=== PATIENT | male | born 1955 | race Caucasian/White ===

== ENCOUNTER 2018-07-28 15:39 | Outpatient (CLI) | payer BC ==
--- NOTE | 2018-07-29 10:55 | Ultrasound Report ---
Reason: LUNG CA SCREEN,AAA SCREEN Procedure Date: 07/28/2018 Accession Number: [id number] / [id number] Procedure: US - Aorta Screening CPT Code: FULL RESULT: EXAM: AORTIC DOPPLER ULTRASOUND EXAM DATE: 07/28/2018 04:40 PM. CLINICAL HISTORY: Extensive smoking history. Age 62. COMPARISON: None. TECHNIQUE: Real-time sonographic imaging of retroperitoneal vascular structures, including color-flow, Doppler flow and spectral analysis was performed by the production technician. Multiple outside sales representative insurance static images were saved for review. FINDINGS: Aorta: The abdominal aorta was adequately visualized. No evidence for abdominal aortic aneurysm. Aorta proximal: Sagittal plane AP 2.2 cm. Aorta mid: Transverse: 2.1 x 2.1 cm. Aorta distal: Transverse: 1.8 x 1.8 cm. Caliber within normal limits: Yes. Plaque Visualized: No. Right iliac: Transverse: 1.5 x 1.2 cm. Left iliac: Transverse: 1.5 x 1.4 cm. Iliac Vessels: The visualized proximal common iliac arteries are normal in caliber. Other: None. IMPRESSION: Normal. No abdominal aortic aneurysm. RADIA
== END 2018-07-28 15:40 | disposition home or self-care (01) ==
LOC: DI 15:39
PROVIDERS: ATTEND Physician Assistant Medical
DX: Z13.6 Encounter for screening for cardiovascular disorders (principal); Z87.891 Personal history of nicotine dependence
CPT/HCPCS: 76706

== ENCOUNTER 2021-12-11 11:42 | Outpatient (CLI) | payer MEDICARE ==
--- NOTE | 2021-12-11 16:30 | CT Report ---
PROCEDURE: Low Dose Lung Cancer Screen INDICATIONS: SMOKER TECHNIQUE: Noncontrast low-dose images were acquired from the pulmonary apices to the posterior costophrenic ang les. Multiplanar MIP reformats were then acquired. For radiation dose reduction, the following was used: automated exposure control, adjustment of mA and/or kV according to patient size. COMPARISON: None. FINDINGS: Image quality: Excellent. Lungs and pleura: No evidence of pneumonia nor edema. Mild scarring within the left lung base. Mediastinum: Heart size is normal. Severe calcification of the coronary vasculature. No pericardial effusion. No mediastinal adenopathy by size criteria. Thoracic aorta and central pulmonary arteries are normal in size. Esophagus is normal in caliber. No hiatal hernia. There is a 30 mm diameter f ocus of soft tissue density within the posterior inferior mediastinum adjacent to the distal esophagu s which appears to be contiguous with the distal esophagus, and contains a small amount of high densi ty material centrally. Bones and chest wall: No suspicious bony lesions. No vertebral body compression fractures. No axil marcin or supraclavicular adenopathy by size criteria. The thyroid is normal in size and there are no incidental findings. Abdomen: Visualized upper abdomen solid organs and bowel loops appear normal in the absence of contr ast. IMPRESSION: 1. No evidence of pulmonary malignancy. Lung RADS 1. Repeat screening chest CT in one year is recomme nded. Next line 2. Indeterminate soft tissue density focus adjacent to the distal esophagus. Finding may represent an d esophageal diverticulum. Initial further assessment with esophagram or upper endoscopy is recommend ed. 3. Coronary artery disease. Reviewed by: Germaine Bailey MD on 12/11/2021 4:29 PM PDT Approved by: Germaine Bailey MD on 12/11/2021 4:29 PM PDT Station ID: [id number]
== END 2021-12-11 11:43 | disposition home or self-care (01) ==
LOC: DI 11:42
PROVIDERS: ATTEND Student in an Organized Health Care Education/Training Program
DX: Z12.2 Encounter for screening for malignant neoplasm of respiratory organs (principal); F17.210 Nicotine dependence, cigarettes, uncomplicated; R93.3 Abnormal findings on diagnostic imaging of other parts of digestive tract; I25.10 Atherosclerotic heart disease of native coronary artery without angina pectoris

== ENCOUNTER 2023-03-11 08:26 | Outpatient (CLI) | payer MEDICARE ==
--- NOTE | 2023-03-11 13:50 | CT Report ---
PROCEDURE: Low Dose Lung Cancer Screen INDICATIONS: CURRENT SMOKER TECHNIQUE: A CT scan of the chest was performed. Intravenous contrast media was not administered. Images were re corded and evaluated at appropriate window settings. Reformats: axial MIP of the chest, coronal and s agittal. For radiation dose reduction, the following was used: automated exposure control, adjustment of mA and/or kV according to patient size. COMPARISON: CT chest, 12/11/2021. FINDINGS: Image quality: Excellent. Lungs and pleura: No pleural effusions. No pneumothorax. No suspicious pulmonary nodules which requi re follow up. Subpleural densities in right middle lobe, lingula and left lower lobe are compatible w ith scars and atelectasis. Mediastinum: Heart size is normal. No pericardial effusion. No large vessel abnormality. Moderate to severe coronary atherosclerosis. There is a partially calcified mass in the azygoesophageal recess and 3.1 cm, unchanged. No mediastin al adenopathy by size criteria. Small hiatal hernia. Chest wall and lower neck: Thyroid is unremarkable. No axillary or supraclavicular adenopathy by size . Bones: No aggressive osseous abnormality. Upper Abdomen: Unremarkable. IMPRESSION: 1. Lung RADS: 1 - Negative. Recommendation: Continue annual screening in 12 Months with LDCT 2. Stable partially calcified mass in the azygoesophageal recess. Reviewed by: Maryam Portillo MD on 03/11/2023 1:48 PM PDT Approved by: Maryam Portillo MD on 03/11/2023 1:48 PM PDT Station ID: [id number]
== END 2023-03-11 08:27 | disposition home or self-care (01) ==
LOC: DI 08:26
PROVIDERS: ATTEND Student in an Organized Health Care Education/Training Program
DX: Z12.2 Encounter for screening for malignant neoplasm of respiratory organs (principal); F17.210 Nicotine dependence, cigarettes, uncomplicated; J98.59 Other diseases of mediastinum, not elsewhere classified

== ENCOUNTER 2023-07-17 06:22 | Day surgery (SDC) | payer MEDICARE ==
[2023-07-17] MEDS ORDERED: LACTATED RINGERS 1,000 ML IV ONE ×2 (06:30→08:19)
[2023-07-17] MEDS ORDERED: PROPOFOL 500 MG/50 ML 500 MG/50 ML VIAL ONE (07:14)
--- NOTE | 2023-07-17 07:20 | ANESTHESIA ---
Pre-Anesthesia VS, & Labs - Diagnosis SCREENING - Procedure COLONOSCOPY Vital Signs: Temp Pulse Resp BP Pulse Ox O2 Flow Rate 36.6 C 75 15 163/112 H 96 07/17/23 06:30 07/17/23 06:30 07/17/23 06:30 07/17/23 06:30 07/17/23 06:30 Height: 5 ft 11 in Weight (kg): 115.8 kg Body Mass Index: 35.6 BMI Classification: Obese - NPO Last Fluid Intake: O430 PREP Home Medications and Allergies Home Medications: Ambulatory Orders No Known Home Medications 07/16/23 No Known Home Medications 07/16/23 Allergies/Adverse Reactions: Allergies Allergy/AdvReac Type Severity Reaction Status Date / Time No Known Drug Allergies Allergy Verified 07/16/23 12:24 Anes History & Medical History - Anesthetic History Anesthesia Complications: reports: No previous complications Family history of Anesthesia Complications: Denies Family history of Malignant Hyperthermia: Denies - Medical History Cardiovascular: reports: None, Hypertension (HYPERTENSIVE TODAY 168/111-160/100, ADVISED TO CHECK AT HOME AND F/U W PMD ENIES CP/SOB) Pulmonary: reports: None, Other (LONG TIME SMOKER, SNORES, DENIES KIM) Gastrointestinal: reports: None Urinary: reports: None Musculoskeletal: reports: None Endocrine/Autoimmune: reports: None Skin: reports: None Smoking Status: Current every day smoker (40 PLUS YEARS) - Surgical History General: reports: Appendectomy Results - EKG Results EKG Comparison: Reviewed EKG Exam General: Alert Dental: WNL Mouth Openin Fingerbreadth Neck Mobility: Normal Mallampati classification: II Thyromental Distance: 4-6 cm Cardiovascular: Regular rate Plan Anesthesia Type: Total IV Consent for Procedure(s) Verified and Reviewed: Yes Code Status: Attempt Resuscitation ASA classification: 3-Severe systemic disease Is this case an emergency?: No
[2023-07-17 08:25] VITALS: O2SAT 94
[2023-07-17 08:44] VITALS: BP 127/77
--- NOTE | 2023-07-17 13:02 | ANESTHESIA POST OP EVALUATION ---
Anesthesia Post Eval - Post Anesthesia Eval Vitals: Last Vital Signs Temp 36.6 C 07/17/23 08:19 Pulse 67 07/17/23 08:35 Resp 18 07/17/23 08:35 BP 127/77 07/17/23 08:35 Pulse Ox 94 07/17/23 08:35 O2 Flow Rate CV Function Including HR & BP: Stable Pain Control: Satisfactory Nausea & Vomiting: Negative Mental Status: Baseline Respiratory Status: Airway Patent Hydration Status: Satisfactory Anesthesia Complications: None
== END 2023-07-17 06:23 | disposition home or self-care (01) ==
LOC: SDS 06:22
PROVIDERS: ATTEND Surgery
PROC: 0DBN8ZX Excision of Sigmoid Colon, Via Natural or Artificial Opening Endoscopic, Diagnostic (ICD-10-PCS; 2023-07-17)
PROC: 0DBP8ZZ Excision of Rectum, Via Natural or Artificial Opening Endoscopic (ICD-10-PCS; 2023-07-17)
PROC: 0DBM8ZZ Excision of Descending Colon, Via Natural or Artificial Opening Endoscopic (ICD-10-PCS; 2023-07-17)
PROC: 0DBH8ZZ Excision of Cecum, Via Natural or Artificial Opening Endoscopic (ICD-10-PCS; principal; 2023-07-17 07:30)
DX: Z12.11 Encounter for screening for malignant neoplasm of colon (principal); R19.5 Other fecal abnormalities; D12.8 Benign neoplasm of rectum; D12.0 Benign neoplasm of cecum; D12.4 Benign neoplasm of descending colon; D12.5 Benign neoplasm of sigmoid colon; D12.7 Benign neoplasm of rectosigmoid junction; D12.2 Benign neoplasm of ascending colon; K57.30 Diverticulosis of large intestine without perforation or abscess without bleeding; E66.9 Obesity, unspecified; Z68.35 Body mass index [BMI] 35.0-35.9, adult; I10 Essential (primary) hypertension; F17.200 Nicotine dependence, unspecified, uncomplicated
CPT/HCPCS: 45380; 45385; J7120